=== PATIENT | male | born 1975 | race Caucasian/White ===

== ENCOUNTER → 2020-04-24 07:45 | Outpatient (CLI) | payer OTHER, SELFPAY ==
--- NOTE | 2020-04-24 08:05 | DI.ECHO.S_ITS ---
Echocardiogram Report + + :Name: GADIEL RYAN Study Date: 04/24/2020 Height: 69 in : :[facility] Location: [facility] Weight: 254 lb : : Gender: Male BSA: 2.3 m2 : :: 1975 Age: 44 yrs BP: 132/80 mmHg: :Reason For Study: Cardiomyopathy, Hypertrophic : :Ordering Physician: : :Khalif Kessler M.D. Performed By: Quin Page : + + Interpretation Summary There is moderate concentric left ventricular hypertrophy. There is no echo evidence for significant left ventricular outflow tract obstruction. The septal thicknesses come down from 2.4cm(2016) to 1.7 cm on this study. Left ventricular ejection fraction is estimated to be 45. There is mild global hypokinesis of the left ventricle. Both atria are severely dilated. There is no significant valvular heart disease. Procedure: A two-dimensional transthoracic echocardiogram with color flow and Doppler was performed. The study quality was technically adequate. Comparison is made with the echocardiogram of 10/11/2017. The patient was in normal sinus rhythm during the exam. Left Ventricle: There is moderate-severe concentric left ventricular hypertrophy. There is severe proximal septal thickening noted. The LVOT velocity is 1.21 m/s. The left ventricular outflow velocity with valsalva is 1.02. There is no echo evidence for significant left ventricular outflow tract obstruction. The septal thicknesses come down from 2.4cm(2017) to 1.7 cm of this study. Left ventricular global longitudinal strain average is abnormal at 11.5% (normal being more negative than -20%). Left ventricular ejection fraction is estimated to be 45. There is mild global hypokinesis of the left ventricle. Diastolic parameters suggest a relaxation abnormality of the left ventricle, consistent with probable normal filling pressures. Right Ventricle: The right ventricle is borderline dilated. The right ventricular systolic function is normal. Atria: Both atria are severely dilated. The left atrium is moderately dilated. The right atrium has significantly increased in size since the prior echo exam. There is no Doppler evidence for an interatrial shunt. Mitral Valve: The mitral valve leaflets appear mildly thickened, but open well. There is trace mitral regurgitation. Aortic Valve: The aortic valve is trileaflet. The aortic valve opens well. The aortic valve is slightly calcified. No aortic regurgitation is present. Tricuspid Valve: The tricuspid valve is normal in structure and function. There is a trace or physiologic amount of tricuspid regurgitation. Pulmonary artery pressures cannot be estimated because of the lack of a measurable TR jet velocity. Pulmonic Valve: The pulmonic valve is not well seen, but is grossly normal. There is a trace or physiologic amount of pulmonic regurgitation. Great Vessels: The aortic root is normal size. The ascending aorta is normal in size. The pulmonary artery is normal size. The inferior vena cava was not well visualized. Pericardium/ Pleura There is no pericardial effusion. There is no pleural effusion. MMode/2D Measurements & Calculations LVIDd: 4.4 cm LVOT diam: 2.3 cm LVIDs: 3.2 cm Ao root diam: 3.8 cm FS: 27.6 % asc Aorta Diam: 3.2 cm EPSS: 0.70 cm IVSd: 1.7 cm LVPWd: 1.7 cm LV lopez. diameter/BSA (cm/m^2): 1.9 LV sys. diameter/BSA (cm/m^2): 1.4 LA A2 area: 31.5 cm2 RA long axis: 6.1 cm LA A4 area: 36.7 cm2 RA area: 27.4 cm2 LA length (vol): 7.1 cm RA vol: 103.8 ml LA vol: 138.8 ml RA : 45.4 ml/m2 LA vol index: 60.7 ml/m2 RVD1 (basal): 4.9 cm TAPSE: 2.1 cm Doppler Measurements & Calculations Ao V2 max: 145.8 cm/sec LVOT Max Kieran: 125.9 cm/sec Ao V2 mean: 108.6 cm/sec LV V1 max P.3 mmHg Ao max P.5 mmHg LV V1 VTI: 19.2 cm Ao mean P.0 mmHg CARLENE(I,D): 3.4 cm2 Ao V2 VTI: 23.1 cm CARLENE(V,D): 3.6 cm2 sev ratio: 0.83 CARLENE indexed to BSA (cm^2/m^2): 1.5 MV E max kieran: 120.4 cm/sec PA V2 max: 97.2 cm/sec MV A max kieran: 52.0 cm/sec PA V2 mean: 71.5 cm/sec MV E/A: 2.3 PA mean P.2 mmHg Med Peak E' Kieran: 6.3 cm/sec PA Accel Time: 0.12 sec E/E' med: 19.1 Lat Peak E' Kieran: 10.6 cm/sec E/E' lat: 11.3 E/e' average: 15.2 MV dec time: 0.12 sec MVA(VTI): 3.5 cm2 MV V2 mean: 53.1 cm/sec SV(LVOT): 79.7 ml MV mean P.5 mmHg MV V2 VTI: 23.0 cm Reading Physician:12:36 PM
== END ==
PROVIDERS: Referring Provider Internal Medicine Cardiovascular Disease; Visit Provider Internal Medicine Cardiovascular Disease
DX: I42.2 Other hypertrophic cardiomyopathy (principal)
CPT/HCPCS: 93306

== ENCOUNTER → 2021-02-16 13:21 | Outpatient (CLI) | payer OTHER, SELFPAY ==
[2021-02-16 16:32] LABS: COVID19 -Nasal RAPID Negative (Negative)
== END ==
PROVIDERS: Visit Provider Student in an Organized Health Care Education/Training Program
DX: Z20.822 Contact with and (suspected) exposure to COVID-19 (principal)
CPT/HCPCS: 87635

== ENCOUNTER → 2021-03-19 13:28 | Outpatient (CLI) | payer OTHER, SELFPAY ==
--- NOTE | 2021-03-19 | DI.ECHO.S_ITS ---
[facility] +---------+ : : [address] [place] [address] : : : : [id number] : : : : Phone: [phone] Echocardiogram Report + + :Name: GADIEL RYAN Study Date: 03/19/2021 Height: 69 in : :[facility] ReadingLocation: Weight: 270 lb : : Gender: Male BSA: 2.3 m2 : :: 1975 Age: 45 yrs BP: 132/82 mmHg: :Reason For Study: HYPERTROPHIC CARDIOMYOPATHY : :Ordering Physician: ATUL, : :CHETAN Performed By: Cindy Mathis : :Referring: CHETAN POLLARD : + + Interpretation Summary Indeterminate rhythm. Heart rate is 88-91 bpm. Suspect atrial flutter with 2: 1 conduction Normal LV size; severe concentric LVH; mild global hypokinesis. EF is 45-50%. Severe LA enlargement. No significant valvular abnormalities. No LVOT obstruction or RONN. Compared to prior study 04/24/2020, patient is no longer in normal sinus rhythm. LV is less dynamic. Procedure: A two-dimensional transthoracic echocardiogram with color flow and Doppler was performed. The study quality was technically adequate. Comparison is made with the echocardiogram of 04/24/2020. Indeterminate rhythm. Heart rate is 88-91 bpm. Suspect flutter with 2:1 conduction. Left Ventricle: The left ventricle is normal in size. There is moderate- severe concentric left ventricular hypertrophy. Proximal septal thickening is noted. The LVOT velocity is 0.82 m/s. The left ventricular outflow velocity with valsalva is 0.99. There is no echo evidence for significant left ventricular outflow tract obstruction. The ejection fraction is estimated to be 45-50%. Right Ventricle: Borderline right ventricular enlargement. The right ventricular systolic function is normal. Atria: The left atrium is severely dilated. Right atrial size is normal. There is no Doppler evidence for an interatrial shunt. Mitral Valve: The mitral valve leaflets appear mildly thickened, but open well. There is trace mitral regurgitation. Aortic Valve: The aortic valve is trileaflet. The aortic valve opens well. There is no aortic valve stenosis. No aortic regurgitation is present. Tricuspid Valve: The tricuspid valve is normal in structure and function. There is trace tricuspid regurgitation. Pulmonic Valve: The pulmonic valve leaflets are thin and pliable; valve motion is normal. There is mild pulmonic regurgitation. Great Vessels: The aortic root is normal size. The dimensions of the ascending aorta are normal. The inferior vena cava was not well visualized. Pericardium/ Pleura There is no pericardial effusion. There is no pleural effusion. MMode/2D Measurements & Calculations LVIDd: 4.3 cm LVOT diam: 2.3 cm LVIDs: 3.2 cm Ao root diam: 3.7 cm FS: 26.7 % asc Aorta Diam: 3.2 cm EPSS: 1.0 cm IVSd: 2.0 cm LVPWd: 1.7 cm LV lopez. diameter/BSA (cm/m^2): 1.9 LV sys. diameter/BSA (cm/m^2): 1.4 LA A2 area: 33.3 cm2 RA long axis: 5.6 cm LA A4 area: 30.7 cm2 RA area: 17.7 cm2 LA length (vol): 6.5 cm RA vol: 47.1 ml LA vol: 132.9 ml RA : 20.1 ml/m2 LA vol index: 56.6 ml/m2 RVD1 (basal): 4.9 cm TAPSE: 2.1 cm Doppler Measurements & Calculations Ao V2 max: 109.6 cm/sec LVOT Max Kieran: 86.0 cm/sec Ao V2 mean: 83.1 cm/sec LV V1 max P.0 mmHg Ao max P.8 mmHg LV V1 VTI: 14.7 cm Ao mean P.0 mmHg CARLENE(I,D): 3.2 cm2 Ao V2 VTI: 19.6 cm CARLENE(V,D): 3.3 cm2 sev ratio: 0.75 CARLENE indexed to BSA (cm^2/m^2): 1.4 MV E max kieran: 88.4 cm/sec PA V2 max: 91.5 cm/sec MV A max kieran: 45.7 cm/sec PA V2 mean: 67.7 cm/sec MV E/A: 1.9 PA mean P.0 mmHg Med Peak E' Kieran: 8.1 cm/sec PA pr(Accel): 41.3 mmHg E/E' med: 11.0 Lat Peak E' Kieran: 11.1 cm/sec E/E' lat: 8.0 E/e' average: 9.5 MV dec time: 0.14 sec SV(LVOT): 62.7 ml Electronically signed by: Yazmin Kincaid M.D. on Reading Physician:03/20/2021 01:44 AM
== END ==
PROVIDERS: Referring Provider Physician Assistant; Visit Provider Physician Assistant
DX: I37.1 Nonrheumatic pulmonary valve insufficiency (principal); I42.2 Other hypertrophic cardiomyopathy
CPT/HCPCS: 93306

== ENCOUNTER → 2021-10-13 12:30 | Outpatient (CLI) | payer OTHER, SELFPAY ==
--- NOTE | 2021-10-13 12:56 | DI.CT.S_ITS ---
PROCEDURE: CT SOFT TISSUE NECK W CON INDICATIONS: Inflammatory conditions of jaws TECHNIQUE: After the administration of intravenous contrast, 3.0 mm axial sections acquired from the skull base to the upper chest. Additional 1.5 mm axial sections acquired through the true vocal cords. 1 mm thick coronal reformats were generated. For radiation dose reduction, the following was used: automated exposure control. COMPARISON: [facility], CR, XR CHEST 1 VIEW, 06/06/2021, 3:52. FINDINGS: There is bilateral TMJ subluxation. The mandibular condyles are anteriorly displaced which is abnormal for a closed mouth position. There is no significant osseous degenerative change of the temporomandibular joints. Specifically, there does not appear to be knee joint space narrowing, sclerosis, or osteophytosis. The mandibular fossa of the temporal bone has a normal morphology. Mildly enlarged parotid glands without discrete mass or adjacent inflammatory change. Straightening of the usual cervical lordosis. Otherwise normal cervical spine alignment. No significant cervical spine degenerative changes. Remaining regional soft tissues demonstrate no significant abnormality. IMPRESSION: Bilateral anterior TMJ subluxation which is suggestive of TMJ dysfunction and potentially ligamentous laxity. No associated degenerative changes identified, although MRI would be more sensitive. A TMJ MRI is recommended if there is clinical concern for TMJ dysfunction. Mildly enlarged parotid glands which may explain a sensation of swelling in the region. Dictated by: Michael Perez M.D. on 10/13/2021 at 14:12 Approved by: Michael Perez M.D. on 10/13/2021 at 14:15
[2021-10-13 13:39] LABS: Add Manual Diff / Slide Review NO; Basophils Absolute Auto 100 /uL (0-100); Basophils Percent Auto 0.8 % (0-2); Eosinophils Absolute Auto 100 /uL (0-450); Eosinophils Percent Auto 1.6 % (2-4); Hematocrit 45.3 % (41-53); Hemoglobin 16.1 g/dL (13.5-17.5); Lymphocytes Absolute Auto 2700 /uL (1100-4500); Mean Corpuscular HGB Conc 35.5 % (30-36); Mean Corpuscular Hemoglobin 30.9 PG (26-34); Mean Corpuscular Volume 87.3 fL (80-100); Monocytes Absolute Auto 600 /uL (0-900); Neutrophils Absolute Auto 3700 /uL (1500-7000); Neutrophils Percent Auto 51.6 % (50-75); Platelet Count 152 X10^3/uL (150-400); Red Blood Cell Count 5.19 X10^6/uL (4.5-5.9); Red Cell Distribution Width 13.5 % (11.6-14.8); White Blood Cell Count 7.2 X10^3/uL (4.5-11.0)
[2021-10-13 13:42] LABS: BUN Creatinine Ratio 15.6 (6-22); Blood Urea Nitrogen 14 mg/dL (9-20); C-Reactive Protein Quant < 0.5 mg/dL (<1.0); Estimated Glomerular Filt Rate > 60.0 mL/min (>60)
[2021-10-13 14:01] LABS: Erythrocyte Sedimentation Rate 1 MM/HR (0-15)
== END ==
PROVIDERS: Referring Provider Dentist Oral and Maxillofacial Surgery; Visit Provider Dentist Oral and Maxillofacial Surgery
DX: S03.03XA Dislocation of jaw, bilateral, initial encounter (principal); R59.0 Localized enlarged lymph nodes; M27.2 Inflammatory conditions of jaws; K12.2 Cellulitis and abscess of mouth; K11.20 Sialoadenitis, unspecified
CPT/HCPCS: 36415; 70491; 82565; 84520; 85025; 85651; 86140

== ENCOUNTER 2022-07-16 09:26 | Emergency (ER) | payer OTHER, SELFPAY ==
[2022-07-16] VITALS (8 sets, daily range): BP systolic 102–131; BP diastolic 61–77; PULSE 53–67; RESP 12–17; TEMP 36.7; O2SAT 96–99; BMI 39.9
[2022-07-16] MEDS: SODIUM CHLORIDE 0.9% 1,000 ML 1000 ML IV (09:42)
--- NOTE | 2022-07-16 09:45 | ED_ITS ---
HPI - General Adult General Chief complaint: Syncope Stated complaint: Syncopal episode Time Seen by Provider: 07/16/22 09:26 Source: patient and EMS Mode of arrival: EMS Limitations: no limitations History of Present Illness HPI narrative: 47-year-old male who is brought in by EMS for evaluation of a syncopal episode this morning. Patient states that he woke up this morning just not feeling himself. He was very weak. No other associated symptoms. He decided to go to work. He was walking into work when he states that his symptoms got worse. He felt very lightheaded. He felt like the room was spinning. He states he was helped to the ground by a friend. He did not hit his head. EMS was called. No reported postictal state. Initially had very weak arms and legs. He currently states he feels very tired. No chest pain. No shortness of breath. No abdominal pain. No skin rashes. No headache. He does have history of AFib. Has had an ablation. Has had a pulmonary embolism after the ablation. Not on anticoagulation. Related Data Home Medications Medication Instructions Recorded Confirmed metoprolol PO 04/22/22 omeprazole PO 04/22/22 prazosin 5 mg capsule 5 mg PO BEDTIME 04/22/22 04/22/22 venlafaxine 150 mg tablet,extended 150 mg PO DAILY 04/22/22 04/22/22 release 24 hr zolpidem 5 mg tablet (Ambien) 5 mg PO BEDTIME PRN 04/22/22 04/22/22 Allergies Allergy/AdvReac Type Severity Reaction Status Date / Time No Known Drug Allergies Allergy Unverified 04/22/22 11:12 Review of Systems Review of Systems ROS Unobtainable: All systems reviewed & are unremarkable except as noted in HPI and below Patient History Medical History COPD (chronic obstructive pulmonary disease) Pulmonary embolism Sleep apnea Surgical History Status post ablation of atrial fibrillation Family History Father Loud snoring Sleep apnea Heart disease Social History Smoking Status: Former smoker Smoking Status: Former smoker alcohol intake frequency: a few times a month Substance Use Type: does not use Exam Initial Vital Signs Initial Vital Signs: Vital Signs Temperature 98.1 F 07/16/22 09:31 Pulse Rate 60 07/16/22 09:31 Respiratory Rate 12 07/16/22 09:31 Blood Pressure 131/77 07/16/22 09:31 Pulse Oximetry 98 07/16/22 09:31 Oxygen Delivery Method 07/16/22 09:31 Const General: cooperative and comfortable HENMT Head: normal to inspection and normocephalic Resp Effort & Inspection: normal respiratory effort Auscultation: clear to auscultation bilaterally Cardio Rate: bradycardic Rhythm: regular rhythm GI Inspection: normal to inspection Skin General: no rashes or lesions noted Neuro General: patient alert, patient awake, patient oriented x3 and moves all ex tremities Cognition: normal cognition Speech: speech normal Extrem General: normal to inspection and capillary refill normal Psych Appearance: grossly normal Course Orders Ordered: ED Orders 07/16/22 09:40 Complete Blood Count AUTO DIFF Stat Comprehensive Metabolic Panel Stat Ethanol (ETOH) Stat Lipase Stat Troponin & CK Cardiac Panel Stat 07/16/22 10:24 EKG-12 Lead Stat Discontinued Medications Sodium Chloride (Normal Saline 0.9%) 1,000 mls @ 1,000 mls/hr IV BOLUS ONE Stop: 07/16/22 10:25 Last Infusion: 07/16/22 10:45 Dose: 0 mls/hr Documented By: Admin: 07/16/22 09:42 Dose: 1,000 mls/hr Documented By: DOMINGA Vital Signs Vital signs: Vital Signs - 8 hr 07/16/22 09:31 07/16/22 09:31 07/16/22 09:34 Temperature 98.1 F Pulse Rate 60 59 L 59 L Respiratory Rate 12 12 14 Blood Pressure 131/77 Pulse Oximetry 98 98 98 Oxygen Delivery Method Room Air 07/16/22 09:34 07/16/22 10:00 07/16/22 10:00 Temperature Pulse Rate 56 L Respiratory Rate 14 Blood Pressure 131/77 112/66 Pulse Oximetry 99 Oxygen Delivery Method 07/16/22 10:30 07/16/22 10:30 07/16/22 10:47 Temperature Pulse Rate 67 Respiratory Rate 15 Blood Pressure 102/61 110/66 Pulse Oximetry 98 Oxygen Delivery Method 07/16/22 10:47 09/16/22 11:00 07/16/22 11:00 Temperature Pulse Rate 57 L 53 L Respiratory Rate 15 16 Blood Pressure 113/63 Pulse Oximetry 97 97 Oxygen Delivery Method 07/16/22 11:30 07/16/22 11:31 07/16/22 11:31 Temperature Pulse Rate 56 L 57 L Respiratory Rate 17 17 Blood Pressure 127/63 Pulse Oximetry 96 99 Oxygen Delivery Method Medical Decision Making Lab Data Lab results reviewed: Yes I reviewed the patient's lab results. Result diagrams: 07/16/22 09:40 07/16/22 09:40 Labs: Lab Results 07/16/22 07/16/22 07/16/22 Range/Units 09:40 09:40 09:40 WBC 5.6 (4.5-11.0) X10^3/uL RBC 4.84 (4.5-5.9) X10^6/uL Hgb 15.5 (13.5-17.5) g/dL Hct 42.9 (41-53) % MCV 88.6 (80-100) fL MCH 32.0 (26-34) PG MCHC 36.1 H (30-36) % RDW 13.1 (11.6-14.8) % Plt Count 150 (150-400) X10^3/uL Neut % (Auto) 48.7 L (50-75) % Lymph % (Auto) 39.4 (25-40) % Wise % (Auto) 9.6 (3-14) % Eos % (Auto) 1.6 L (2-4) % Baso % (Auto) 0.7 (0-2) % Neut # (Auto) 2700 (3145-8351) /uL Lymph # (Auto) 2200 (0298-9284) /uL Wise # (Auto) 500 (0-900) /uL Eos # (Auto) 100 (0-450) /uL Baso # (Auto) 0 (0-100) /uL Sodium 139 (137-145) mmol/L Potassium 4.3 (3.4-5.1) mmol/L Chloride 104 (98-107) mmol/L Carbon Dioxide 21 L (22-32) mmol/L BUN 15 (9-20) mg/dL Creatinine 0.82 (0.66-1.25) mg/dL Estimated GFR > 60 (>60) mL/min BUN/Creatinine Ratio 18.3 (6-22) Glucose 98 (70-100) mg/dL Calcium 9.5 (8.4-10.2) mg/dL Total Bilirubin 1.8 H (0.2-1.3) mg/dL AST 69 H (17-59) IU/L ALT 92 H (<50) IU/L Alkaline Phosphatase 39 (38-126) U/L Total Creatine Kinase 244 H (55-170) U/L CK-MB (CK-2) 3.75 H (<2.37) ng/mL CK-MB (CK-2) Rel Index 1.5 (1.5-5.0) % Troponin I < 0.012 (0.01-0.034) ng/mL Total Protein 8.0 (6.3-8.2) g/dL Albumin 4.6 (3.5-5.0) g/dL Globulin 3.4 (1.7-4.1) g/dL Albumin/Globulin Ratio 1.4 (1.0-2.8) Lipase 191 (23-300) U/L Ethyl Alcohol < 10 ( - 10) mg/dL Point of Care Testing Glucose POC 99 Point of care testing: Point of Care Testing Glucose POC 99 ECG Data Attestation: I personally reviewed and interpreted this ECG as follows: Interpretation: Sinus bradycardia Ventricular rate of 56 Normal axis QRS 1 through 2 milliseconds Inverted T-waves 1 2 aVL V3 V4 V5 V6 Right bundle branch block MDM Narrative Medical decision making narrative: Patient did have what appears to be a syncopal episode. Low suspicion for seizure. Low suspicion for CVA/TIA. Patient states he feels better. He was able to ambulate. 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 He was given return precautions. He expressed understanding and agreement. Discharge Plan Departure Patient Disposition: Home Clinical Impression: Syncope Instructions: DI for Syncope in Adults (Fainting) Activity Restrictions/Additional Instructions: I do recommend you continue to take all of your medications as directed and keep all of your scheduled medical appointments. Return to the emergency department for any new or worsening symptoms. Prescriptions: No Action venlafaxine 150 mg tablet extended release 24hr 150 mg PO DAILY zolpidem [Ambien] 5 mg tablet 5 mg PO BEDTIME PRN prazosin 5 mg capsule 5 mg PO BEDTIME metoprolol PO omeprazole PO Referrals: Miscellaneous,Doctor, MD [Primary Care Provider] -
[2022-07-16 09:52] LABS: Add Manual Diff / Slide Review NO; Basophils Absolute Auto 0 /uL (0-100); Basophils Percent Auto 0.7 % (0-2); Eosinophils Absolute Auto 100 /uL (0-450); Eosinophils Percent Auto 1.6 % (2-4); Hematocrit 42.9 % (41-53); Hemoglobin 15.5 g/dL (13.5-17.5); Lymphocytes Absolute Auto 2200 /uL (1100-4500); Lymphocytes Percent Auto 39.4 % (25-40); Mean Corpuscular HGB Conc 36.1 % (30-36); Mean Corpuscular Volume 88.6 fL (80-100); Monocytes Absolute Auto 500 /uL (0-900); Monocytes Percent Auto 9.6 % (3-14); Neutrophils Absolute Auto 2700 /uL (1500-7000); Neutrophils Percent Auto 48.7 % (50-75); Platelet Count 150 X10^3/uL (150-400); Red Blood Cell Count 4.84 X10^6/uL (4.5-5.9); Red Cell Distribution Width 13.1 % (11.6-14.8); White Blood Cell Count 5.6 X10^3/uL (4.5-11.0)
[2022-07-16 10:14] LABS: Alanine Aminotransferase 92 IU/L (<50); Albumin 4.6 g/dL (3.5-5.0); Albumin Globulin Ratio 1.4 (1.0-2.8); Alkaline Phosphatase 39 U/L (38-126); Aspartate Aminotransferase 69 IU/L (17-59); BUN Creatinine Ratio 18.3 (6-22); Bilirubin Total 1.8 mg/dL (0.2-1.3); Blood Urea Nitrogen 15 mg/dL (9-20); Calcium 9.5 mg/dL (8.4-10.2); Carbon Dioxide 21 mmol/L (22-32); Chloride 104 mmol/L (98-107); Estimated Glomerular Filt Rate > 60 mL/min (>60); Ethanol (ETOH) < 10 mg/dL; Globulin 3.4 g/dL (1.7-4.1); Glucose 98 mg/dL (70-100); HEMOLYSIS 106 (0-50); Lipase 191 U/L (23-300); Potassium 4.3 mmol/L (3.4-5.1); Sodium 139 mmol/L (137-145)
[2022-07-16 10:45] LABS: Creatine Kinase 244 U/L (55-170)
[2022-07-16 10:57] LABS: Troponin I < 0.012 ng/mL (0.01-0.034)
--- NOTE | 2022-07-16 11:10 | PC.NURSE ---
eating snack, drinking water, continues to feel well.
[2022-07-16 11:22] LABS: CKMB % Relative Index 1.5 % (1.5-5.0); Creatine Kinase MB 3.75 ng/mL (<2.37)
--- NOTE | 2022-07-16 11:43 | PC.NURSE ---
ambulation trial completed. steady gate.
== END 2022-07-16 12:05 | disposition home or self-care (01) ==
PROVIDERS: Emergency Provider Emergency Medicine
DX: R55 Syncope and collapse (principal); R00.1 Bradycardia, unspecified
CPT/HCPCS: 80053; 80320; 82550; 82553; 82962; 83690; 84484; 85025; 93005; 99284

== ENCOUNTER → 2023-02-17 10:44 | Outpatient (CLI) | payer OTHER, SELFPAY ==
--- NOTE | 2023-02-17 | DI.CT.S_ITS ---
PROCEDURE: CT SOFT TISSUE NECK W CON INDICATIONS: Pain in throat TECHNIQUE: After the administration of intravenous contrast, 3.0 mm axial sections acquired from the sella to the aortic arch. Additional oblique axial 3.0 mm sections acquired through the pharynx. 3 mm thick coronal and sagittal reformats were generated. For radiation dose reduction, the following was used: automated exposure control. COMPARISON: [facility], CT, CT SOFT TISSUE NECK W CON, 10/13/2021, 13:01. FINDINGS: Image quality: Excellent. Lymph nodes: No enlarged lymph nodes seen throughout the neck. Vessels: Visualized vasculature appears patent. Neck spaces: The tonsils are prominent bilaterally. No distinct mass is identified. The vocal cords, false vocal cords, pyriform sinuses, epiglottis, vallecula, and tongue base all appear normal. Extramucosal spaces appear unremarkable. Glands: The parotid and submandibular glands appear normal. Thyroid gland is unremarkable. Miscellaneous: Visualized brain and orbits appear normal. Lung apices appear clear. Superficial soft tissues appear normal. Bones: No suspicious bony lesions. Visualized sinuses and mastoids appear unremarkable. IMPRESSION: Prominent bilateral tonsillar hypertrophy without discrete mass. Recommend correlation to infection or inflammation. Dictated by: Xochilt Maldonado M.D. on 02/17/2023 at 19:27 Approved by: Xochilt Maldonado M.D. on 02/17/2023 at 19:34
== END ==
PROVIDERS: Referring Provider Otolaryngology; Visit Provider Otolaryngology
DX: J35.1 Hypertrophy of tonsils (principal); R07.0 Pain in throat; R05.1 Acute cough
CPT/HCPCS: 70491; Q9967

== ENCOUNTER → 2023-04-19 08:17 | Outpatient (CLI) | payer OTHER, SELFPAY ==
--- NOTE | 2023-04-19 | DI.CT.S_ITS ---
PROCEDURE: CT SINUS SCREEN WO CON INDICATIONS: Chronic maxillary sinusitis TECHNIQUE: Noncontrast 3.0 mm axial images acquired from the frontal sinuses to the mid-sella, with coronal and sagittal reformats. For radiation dose reduction, the following was used: automated exposure control, adjustment of mA and/or kV according to patient size. COMPARISON: None. FINDINGS: Image quality: Excellent. Maxillary Sinuses: No bony remodeling or destruction. Trace mucosal thickening. Ethmoid Air Cells: No bony remodeling or destruction. Sinuses are clear. Sphenoid Sinuses: No bony remodeling or destruction. Trace mucosal thickening. Frontal Sinuses: No bony remodeling or destruction. Sinuses are clear. Ostiomeatal Complexes: Ostiomeatal complexes are patent. No Heather cells. Miscellaneous: Visualized intra-orbital contents are normal. No dago bullosa or paradoxical turbinate curvature. Slight leftward nasal septal deviation. Keros type 2. IMPRESSION: Trace mucosal thickening of the maxillary sinuses and sphenoid sinuses. No bony remodeling. Dictated by: Triston Barbour M.D. on 04/19/2023 at 10:42 Approved by: Triston Barbour M.D. on 04/19/2023 at 10:44
== END ==
PROVIDERS: PCP Nurse Practitioner Family; Referring Provider Otolaryngology; Visit Provider Otolaryngology
DX: J32.0 Chronic maxillary sinusitis (principal); J32.2 Chronic ethmoidal sinusitis; J31.0 Chronic rhinitis
CPT/HCPCS: 70486